=== PATIENT | female | born 1945 | race Caucasian/White ===

== ENCOUNTER 2019-03-22 13:34 | Outpatient (CLI) | payer MEDICARE ==
--- NOTE | 2019-03-22 14:49 | MMO ---
Bilateral MAMMO Bilat Screen [facility]. CLINICAL HISTORY: Patient is 73 years old and is seen for screening. The patient has no family history of breast cancer. The patient has no personal history of cancer. VIEWS: The views performed were: bilateral craniocaudal with tomosynthesis and bilateral mediolateral oblique with tomosynthesis. FILMS COMPARED: The present examination has been compared to prior imaging studies performed at [facility] on 12/05/2014, 12/07/2015, 12/09/2016 and 12/11/2017. This study has been interpreted with the assistance of computer-aided detection. MAMMOGRAM FINDINGS: There are scattered fibroglandular densities. There are no suspicious masses, suspicious calcifications, or new areas of architectural distortion. IMPRESSION: THERE IS NO MAMMOGRAPHIC EVIDENCE OF MALIGNANCY. A ROUTINE FOLLOW-UP MAMMOGRAM IN 1 YEAR IS RECOMMENDED. THE RESULTS OF THIS EXAM WERE SENT TO THE PATIENT. ACR BI-RADS Category 1 - Negative MAMMOGRAPHY NOTE: 1. A negative mammogram report should not delay a biopsy if a dominant of clinically suspicious mass is present. 2. Approximately 10% to 15% of breast cancers are not detected by mammography. 3. Adenosis and dense breasts may obscure an underlying neoplasm. Reported by: PATTI ROSARIO MD Electonically Signed: [id number]
== END 2019-03-22 13:35 | disposition home or self-care (01) ==
LOC: BICMAMMO 13:34
PROVIDERS: ATTEND Internal Medicine
DX: Z12.31 Encounter for screening mammogram for malignant neoplasm of breast (principal)
CPT/HCPCS: 77063; 77067

== ENCOUNTER 2020-03-28 12:54 | Outpatient (CLI) | payer MEDICARE ==
--- NOTE | 2020-03-28 13:36 | MMO ---
Bilateral MAMMO Bilat Screen [facility]. CLINICAL HISTORY: Patient is 74 years old and is seen for screening. The patient has no family history of breast cancer. The patient has no personal history of cancer. VIEWS: The views performed were: bilateral craniocaudal with tomosynthesis and bilateral mediolateral oblique with tomosynthesis. FILMS COMPARED: The present examination has been compared to prior imaging studies performed at [facility] on 12/07/2015, 12/09/2016, 12/11/2017 and 03/22/2019. This study has been interpreted with the assistance of computer-aided detection. MAMMOGRAM FINDINGS: There are scattered fibroglandular densities. There are stable benign appearing calcifications seen in both breasts. There are also vascular calcifications. There are no suspicious masses, suspicious calcifications, or new areas of architectural distortion. IMPRESSION: THERE IS NO MAMMOGRAPHIC EVIDENCE OF MALIGNANCY. A ROUTINE FOLLOW-UP MAMMOGRAM IN 1 YEAR IS RECOMMENDED. THE RESULTS OF THIS EXAM WERE SENT TO THE PATIENT. ACR BI-RADS Category 2 - Benign finding MAMMOGRAPHY NOTE: 1. A negative mammogram report should not delay a biopsy if a dominant of clinically suspicious mass is present. 2. Approximately 10% to 15% of breast cancers are not detected by mammography. 3. Adenosis and dense breasts may obscure an underlying neoplasm. Reported by: EDUARD OLSON MD Electonically Signed: [id number]
--- NOTE | 2020-03-28 13:45 | BD ---
EXAM: Bone densitometry using DEXA HISTORY: 74 yo female. Screening for postmenopausal osteoporosis FINDINGS: L1--bone mineral density 0.818 g/sq cm; T score -1.6 ; Z score 0.5 L2--bone mineral density 0.939 g/sq cm; T score -0.8 ; Z score 1.5 L3--bone mineral density 1.052 g/sq cm; T score -0.3 ; Z score 2.2 L4--bone mineral density 1.171 g/sq cm; T score 1.0 ; Z score 2.5 Total L1-L4--bone mineral density 1.018 g/sq cm; T score -0.3 ; Z score 2.1 Left femoral neck--bone mineral density0.638; T score -1.9 ; Z score 0.1 Total proximal left femur--bone mineral density 0.806; T score -1.1 ; Z score 0.6 The 10 year fracture risk for a major osteoporotic fracture is 19% and for a hip fracture is 9.7%. IMPRESSION: Osteopenia
== END 2020-03-28 12:55 | disposition home or self-care (01) ==
LOC: BICMAMMO 12:54
PROVIDERS: ATTEND Internal Medicine
DX: M81.0 Age-related osteoporosis without current pathological fracture (principal); M85.89 Other specified disorders of bone density and structure, multiple sites; Z12.31 Encounter for screening mammogram for malignant neoplasm of breast
CPT/HCPCS: 77063; 77067; 77080

== ENCOUNTER 2022-08-28 11:45 | Outpatient (CLI) | payer MEDICARE | END 2022-08-28 11:46 | disposition home or self-care (01) | LOC: PET 11:45 | PROVIDERS: ATTEND Internal Medicine | DX: R91.1 Solitary pulmonary nodule (principal) | CPT/HCPCS: 78815; A9552 ==

== ENCOUNTER 2023-02-26 10:34 | Outpatient (CLI) | payer MEDICARE ==
[~2023-02-26 10:34] MED LIST: Iopamidol-370 76% 500 ML MDV (1 ML CHARGE) ONE
== END 2023-02-26 10:35 | disposition home or self-care (01) ==
LOC: BICCT 10:34
PROVIDERS: ATTEND Internal Medicine
DX: R91.8 Other nonspecific abnormal finding of lung field (principal)
CPT/HCPCS: 71260; 82565

== ENCOUNTER 2024-04-07 11:14 | Outpatient (CLI) | payer MEDICARE | END 2024-04-07 11:15 | disposition home or self-care (01) | LOC: BICCT 11:14 | PROVIDERS: ATTEND Internal Medicine | DX: Z12.31 Encounter for screening mammogram for malignant neoplasm of breast (principal); Z12.2 Encounter for screening for malignant neoplasm of respiratory organs; Z87.891 Personal history of nicotine dependence | CPT/HCPCS: 71271; 77063; 77067 ==